=== PATIENT | male | born 1945 ===

== ENCOUNTER 2017-06-18 13:04 | Outpatient (CLI) | payer MEDICARE, BC ==
[2017-06-18 19:04] LABS: Hemoglobin A1c 7.2 % (4.0-6.0)
[2017-06-18 19:05] LABS: ALT (SGPT) 32 U/L (8-55); AST (SGOT) 103 U/L (5-34); Albumin 4.3 g/dL (3.4-4.8); Alkaline Phosphatase 115 U/L (40-150); Anion Gap 20 mmol/L (10-20); BUN (Urea Nitrogen) 53 mg/dL (8.4-25.7); Bilirubin, Total 0.6 mg/dL (0.2-1.2); Calc. Creatinine Clearance 0 mL/min (70-130); Calcium 9.6 mg/dL (7.8-10.44); Carbon Dioxide 29 mmol/L (23-31); Cardiac Risk 5.3 (Less than 4.5); Chloride 94 mmol/L (98-107); Cholesterol 228 mg/dl (< 200 Desired); Estimated GFR-MDRD 27; Globulin 3.6 g/dL (2.4-3.5); Glucose 152 mg/dL (83-110); HDL Cholesterol 43 mg/dL (>60 Neg Risk); LDL Cholesterol, Calculated 141 mg/dL; Potassium 4.7 mmol/L (3.5-5.1); Protein, Total 7.9 g/dL (5.8-8.1); Sodium 138 mmol/L (136-145); Triglycerides 221 mg/dL (Less than 150)
[2017-06-18 19:30] LABS: #Eosinphils 0.1 thou/uL (0.0-0.7); #Lymphocytes 1.3 thou/uL (1.20-3.40); #Monocytes 0.1 thou/uL (0.11-0.59); #Neutrophils 6.7 thou/uL (1.40-6.50); %Basophils 0.6 % (0.0-1.0); %Eosinophils 1.5 % (0.0-10.0); %Lymphocytes 15.6 % (21.0-51.0); %Monocytes 1.6 % (0.0-10.0); %Neutrophils 80.8 % (42.0-75.0); Hemoglobin 12.8 g/dL (14.0-18.0); Mean Corpuscular HGB CONC 30.9 g/dL (32.0-36.0); Mean Corpuscular Hemoglobin 28.5 pg (27.0-31.0); Mean Corpuscular Volume 92.5 fl (80.0-94.0); Mean Platelet Volume 7.6 fL (7.4-10.4); Platelet Count 234 thou/uL (130-400); White Blood Cell (WBC) Count 8.3 thou/uL (4.8-10.8)
== END 2017-06-18 13:05 | disposition home or self-care (01) ==
LOC: NAV LABSP 13:04
DX: E11.65 Type 2 diabetes mellitus with hyperglycemia (principal); E78.5 Hyperlipidemia, unspecified; I11.0 Hypertensive heart disease with heart failure; I50.32 Chronic diastolic (congestive) heart failure
CPT/HCPCS: 80053; 80061; 83036; 83880; 84443; 85025